=== PATIENT | female | born 1940 | race Caucasian/White ===

== ENCOUNTER → 2016-12-26 | Outpatient (CLI) | payer MEDICARE, BC ==
--- NOTE | 2016-12-26 16:31 | RADRPT ---
PROCEDURE: Right knee radiographs. CLINICAL INDICATION: Right knee pain. TECHNIQUE: Three views. Weight bearing. Frontal, lateral, and patellar view. COMPARISON: No prior studies are available for comparison. FINDINGS: There is no fracture or dislocation. The soft tissues are normal. There are degenerative changes with osteophytes arising from all 3 joint compartment margins. There is lateral joint compartment narrowing and subarticular sclerosis. There is no lytic or blastic lesion. There is no radiopaque foreign body. IMPRESSION: 1. Moderate degenerative changes of the right knee. 2. No acute abnormality. RPTAT: QQ .Ever Silva MD, Date Time Electronically viewed and signed by .Ever Silva MD, on 12/26/2016 16:31 .R/
== END | disposition home or self-care (01) ==
LOC: HKI 13:25
DX: M25.561 Pain in right knee (principal)
CPT/HCPCS: 73562; G0463